=== PATIENT | male | born 1995 | race Hispanic/Latino ===

== ENCOUNTER → 2023-10-25 | Emergency (ER) | payer OTHER, SELFPAY ==
[~2023-10-25] MED LIST: MORPHINE 4 MG/ML SYR ONE; ONDANSETRON 4 MG/2 ML VIAL ONE
--- OUTSIDE RECORDS SUMMARY | 2023-10-25 20:36 | XMS REPORT | Continuity of Care Document ---
Author Name Unknown Address [address] [facility] [address]. [address] [place] [address] [facility] thconnect Address [address] [facility]. [address] [place] [address] Care Team Providers Care [facility] Name Role Phone Pcp, Patient Does Not Have A Primary Care Physic [facility], Gary Tony Attending Clinician U Jun Gutiérrez MD Attending Clinician UJN RODRIGUEZ Attending Clinician Unavailable Problems Condition Name Condition Details Condition Category Status Onset Date Resolution Date Last Treatment Date Treating Clinician Comments Source Mandible fracture Mandible fracture Disease Active 04-01 00:00: 00 [facility] Closed fracture of mandible, unspecifie d laterality , unspecifie d mandibular site, initial encounter Closed fracture of mandible, unspecifie d laterality , unspecifie d mandibular site, initial encounter Disease Active 04-01 00:00: 00 Overview: Formattin g of this note might be different from the original. Added automatic ally from request for surgery [id number] [facility] Allergies, Adverse Reactions, Alerts Allergy Name Allergy Type Status Severity Reaction(s) Onset Date Inactive Date Treating Clinician Comments Source NO KNOWN ALLERGIE S Drug Class Active [facility] Social History Social Habit Start Date Stop Date Quantity Comments Source Tobacco use and exposure 2018-05-10 00:00:00 2018-05-10 00:00:00 Never used [facility] Cigarettes smoked current (pack per day) - Reported 2018-05-10 00:00:00 2018-05-10 00:00:00 [facility] Cigarette pack-years 2018-05-10 00:00:00 2018-05-10 00:00:00 [facility] History of tobacco use 2017-05-10 00:00:00 Cigarette Smoker [facility] Sex Assigned At 1995 00:00:00 1995 00:00:00 [facility] Smoking Status Start Date Stop Date Source Former smoker 2018-05-10 00:00:00 2018-05-10 00:00:00 [facility] Medications Ordered Medication Name Filled Medication Name Start Date Stop Date Current Medication? Ordering Clinician Indication Dosage Frequency Signature (SIG) Comments Components Source TAKE 1 TABLET DAILY. 2022-0 8-11 00:00: 00 No 25 Dose Unknown 2022-0 5-01 00:00: 00 No Dose Unknown 2022-0 4-26 00:00: 00 No Dose Unknown 2022-0 4-26 00:00: 00 No Dose Unknown 2022-0 4-26 00:00: 00 No Dose Unknown 2022-0 4-26 00:00: 00 No Dose Unknown 2022-0 4-26 00:00: 00 No Dose Unknown 2022-0 4-26 00:00: 00 No Dose Unknown 2022-0 4-26 00:00: 00 No Dose Unknown 2022-0 4-26 00:00: 00 No Dose Unknown 2022-0 4-26 00:00: 00 No Dose Unknown 2022-0 4-26 00:00: 00 No Dose Unknown 2022-0 4-26 00:00: 00 No Dose Unknown 2022-0 4-26 00:00: 00 No Dose Unknown 2022-0 4-26 00:00: 00 No Dose Unknown 2022-0 4-26 00:00: 00 No Dose Unknown 2022-0 4-26 00:00: 00 No Dose Unknown 2022-0 4-26 00:00: 00 No Dose Unknown 2022-0 4-26 00:00: 00 No Dose Unknown 2022-0 4-26 00:00: 00 No Dose Unknown 2022-0 4-26 00:00: 00 No Dose Unknown 2022-0 4-26 00:00: 00 No Dose Unknown 2022-0 4-26 00:00: 00 No Dose Unknown 2022-0 4-26 00:00: 00 No Dose Unknown 2022-0 4-26 00:00: 00 No Dose Unknown 12-09 00:00: 00 No Dose Unknown 12-09 00:00: 00 No Dose Unknown 12-09 00:00: 00 No Dose Unknown 12-09 00:00: 00 No Dose Unknown 12-09 00:00: 00 No Dose Unknown 12-09 00:00: 00 No Macrobid 100 mg capsule 12-09 00:00: 00 No 1mg Dose Unknown 12-09 00:00: 00 No Dose Unknown 10-24 00:00: 00 No Dose Unknown 10-24 00:00: 00 No Claritin 10 mg tablet 09-29 00:00: 00 No 1mg fluticasone propionate 50 mcg/actuati on nasal spray,suspe nsion 09-29 00:00: 00 No 2mcg/ac tuation Dose Unknown 09-29 00:00: 00 No No known medications 04-05 13:53: 30 No Univers [facility] Vital Signs Vital Name Observation Time Observation Value Comments S ource BP Diastolic 2022-03-26 17:17:00 90 mm[Hg] Weight Measured 2022-03-26 17:17:00 186.40 pounds Height Measured 2022-03-26 17:17:00 67.00 inches Body Temperature 2022-03-26 17:17:00 98.50 degrees Heart Rate 2022-03-26 17:17:00 73.00 /min Respiratory Rate 2022-03-26 17:17:00 BP Systolic 2022-03-26 17:17:00 151 mm[Hg] BP Systolic 2021-12-09 16:47:00 108 mm[Hg] BP Diastolic 2021-12-09 16:47:00 66 mm[Hg] Weight Measured 2021-12-09 16:47:00 186.60 pounds Height Measured 2021-12-09 16:47:00 67.00 inches Body Temperature 2021-12-09 16:47:00 97.90 degrees Heart Rate 2021-12-09 16:47:00 96.00 /min Respiratory Rate 2021-12-09 16:47:00 21.00 /min Procedures Procedure Date / Time Performed Performing Clinicia n Source SARS-COV-2 COVID-19 VACCINE,0.3ML,IM (PFIZER) 2021-09-08 21:32:43 Doctor Unassigned, [place] [facility] Plan of Care Planned Activity Planned Date Details Comments Source Goal Plan of Care Note [code = 82799-0] Goal Plan of Care Note [code = 27347-9] Goal Plan of Care Note [code = 27722-8] Goal Plan of Care Note [code = 08719-4] Goal Plan of Care Note [code = 49304-1] Goal Plan of Care Note [code = 66193-8] Goal Plan of Care Note [code = 01867-3] Goal Plan of Care Note [code = 39708-1] Goal Plan of Care Note [code = 99567-2] Goal Plan of Care Note [code = 89018-6] Goal Plan of Care Note [code = 06849-8] Goal Plan of Care Note [code = 64704-7] Encounters Start Date/Time End Date/Time Encounter Type Admission Type Attending [facility] Care Department Encounter ID Source 2022-09-21 17:31:11 2022-09-21 17:31:11 Outpatient [facility] [id number] Aakash Wilde Roney 2022-09-17 11:02:40 2022-09-17 11:02:40 Outpatient [facility] [id number] Aakash F Roney 2022-09-14 15:26:21 2022-09-14 15:26:21 Outpatient [facility] [id number] Aakash Sim 2022-03-26 00:00:00 2022-03-26 00:00:00 Outpatient Visit [id number] 2021-09-08 14:50:00 2021-09-08 15:00:00 Imm/Inj Visit Fernanda, Gary Jun Lam [facility] [id number] [facility] 2021-09-08 14:50:00 2021-09-08 14:50:00 Outpatient Rubin JUN RODRIGUEZ [facility] [id number] [facility] Results Test Description Test Time Test Comments Results Result Co mments Source CULTURE, URINE 2022-09-19 11:03:58 SPECIMEN NUMBER: [id number] CULTURE, URINE SPECIMEN NUMBER: [id number] SPECIMEN COMMENT: URINE SOURCE: URINE REPORT STATUS: FINAL FINAL REPORT: 09/19/2022 NO GROWTH AFTER 36 HOURS INCUBATION [facility] has important pathology staff changes effective 10/14/2022. New pathology staff will provide uninterrupted, excellent patient care and clinical consultation. See URL: [email or web address]. UNLESS OTHERWISE INDICATED, ALL TESTING PERFORMED AT [facility] [address] [place] [id number] CLIA: [id number], CAP: [id number] HIV 1/2 4TH GEN, RFLX [id number] 04:28:10* Test Item Value Reference Range Interpretation Comme nts HIV 1/2 4TH GEN, RFLX CONF ( test code = 3514) NON-REACTIVE NON-REACTIVE [id number] 04:26:07* Test Item Value Reference Range Interpretation Comme nts RPR RESULT (test code = 3501) NON-REACTIVE NON-REACTIVE RPR TITER (test code = 3500) NOT INDIC. TITER NOT INDIC. TSH, THIRD [id number] 04:27:09* Test Item Value Reference Range Interpretation Comme nts TSH, THIRD GENERATION (test code = 2821) 2.170 UIU/ML 0.400-4.100 COMPREHENSIVE METABOLIC [id number] 03:37:00* Test Item Value Reference Range Interpretation Comme nts GLUCOSE (test code = 2217) 88 MG/DL 70-99 BUN (test code = 2208) 18 MG/DL 6-20 CREATININE (test code = 2214) 1.00 MG/DL 0.80-1.40 eGFR (2020 CKD-EPI) (test code = 18733) 106 ML/MIN/1.73 >60 CALC BUN/CREAT (test code = 2235) 18 RATIO 6-28 SODIUM (test code = 223) 138 MEQ/L 133-146 POTASSIUM (test code = 2228) 4.4 MEQ/L 3.5-5.4 CHLORIDE (test code = 2215) 101 MEQ/L 95-107 CARBON DIOXIDE (test code = 2205) 26 MEQ/L 19-31 CALCIUM (test code = 2208) 9.8 MG/DL 8.5-10.5 PROTEIN, TOTAL (test code = 2228) 7.6 G/DL 6.1-8.3 ALBUMIN (test code = 2200) 4.9 G/DL 3.5-5.2 CALC GLOBULIN (test code = 2240) 2.7 G/DL 1.9-3.7 CALC A/G RATIO (test code = 2233) 1.8 RATIO 1.0-2.6 BILIRUBIN, TOTAL (test code = 2206) 0.4 MG/DL See_Comment [Automated me ssage] The system which generated this result transmitted reference range: <=1.2. The reference range was not used to interpret this result as normal/abnormal. ALKALINE PHOSPHATASE (test code = 2203) 78 U/L 40-115 AST (test code = 221) 22 U/L 9-50 ALT (test code = 2219) 34 U/L 5-50 LIPID [id number] 03:37:00* Test Item Value Reference Range Interpretation Comme nts CHOLESTEROL (test code = 2210) 182 MG/DL <200 TRIGLYCERIDES (test code = 2232) 52 MG/DL <150 HDL CHOLESTEROL (test code = 2219) 71 MG/DL >39 CALC LDL CHOL (test code = 2236) 98 MG/DL <100 NOTE: CALCULATED LDL IS BASED ON KERRI-BRIGGS METHOD WHICHINCLUDES ADJUSTABLE TRIGLYCERIDE:VLDL CHOLESTEROL RATIO.THIS FACTOR VARIES BY MEASURED TRIGLYCERIDE AND NON-HDLCHOLESTEROL CONCENTRATIONS WITH INCREASED CALCULATED LDL SEENIN HIGHER TRIGLYCERIDE OR LOWER NON-HDL SPECIMENS. FOR MOREINFORMATION, SEE CLIENT ANNOUNCEMENT AT [email or web address] RISK RATIO LDL/HDL (test code = 2238) 1.38 RATIO <3.55 UNLESS OTHERW ISE INDICATED, ALL TESTING PERFORMED [facility] [address] [place] [id number] PARTS PROCESSOR: SAVANAH MCDONALD M.D. CLIA NUMBER [id number] [facility]. [id number] CBC W/AUTO DIFF WITH [id number] 03:04:03* Test Item Value Reference Range Interpretation Comme nts WBC (test code = 1001) 5.6 K/UL 3.5-11.0 RBC (test code = 1002) 4.92 M/UL 4.50-6.10 HEMOGLOBIN (test code = 1003) 15.6 G/DL 13.5-17.0 HEMATOCRIT (test code = 1004) 45.4 % 40.0-51.0 MCV (test code = 1005) 92.3 fL 80.0-99.0 MCH (test code = 1006) 31.7 PG 25.0-33.0 MCHC (test code = 1007) 34.4 G/DL 31.0-36.0 RDW (test code = 1038) 12.6 % 11.5-15.0 NEUTROPHILS (test code = 1008) 63.7 % LYMPHOCYTES (test code = 1010) 26.6 % MONOCYTES (test code = 1011) 7.9 % EOSINOPHILS (test code = 1012) 1.1 % BASOPHILS (test code = 1013) 0.5 % IMMATURE GRANULOCYTES (test code = 1036) 0.2 % NUCLEATED RBCS (test code = 1065) 0.0 /100 WBC'S See_Comment [Automated messa ge] The system which generated this result transmitted reference range: 0.0. The reference range was not used to interpret this result as normal/abnormal. PLATELET COUNT (test code = 1015) 242 K/UL 130-400 ABSOLUTE NEUTROPHILS (test code = 1066) 3.55 K/UL 1.50-7.50 ABSOLUTE LYMPHOCYTES (test code = 1067) 1.48 K/UL 1.00-4.00 ABSOLUTE MONOCYTES (test code = 1068) 0.44 K/UL 0.20-1.00 ABSOLUTE EOSINOPHILS (test code = 1040) 0.06 K/UL 0.00-0.50 ABSOLUTE BASOPHILS (test code = 1069) 0.03 K/UL 0.00-0.20 ABS IMMATURE GRANULOCYTES (test code = 1020) 0.01 K/UL 0.00-0.10 ABS NUCLEATED RBCS (test code = 34239) 0.00 K/UL 0.00-0.11 CULTURE, [id number] 13:46:27SPECIMEN NUMBER: [id number] CULTURE, URINE SPECIMEN NUMBER: [id number] SPECIMEN COMMENT: URINE SOURCE: URINE REPORT STATUS: FINAL FINAL REPORT: 12/12/2021 <10,000 CFU/ML UROGENITAL SUZAN PRESENT NO COMMON PATHOGENSCULTURE, [id number] 00:00:00* Test Item Value Reference Range Interpretation Comme nts CULTURE, URINE (test code = 34474) SPECIMEN NUMBER: [id number] CULTURE, [id number] 00:00:00* Test Item Value Reference Range Interpretation Comme nts CULTURE, URINE (test code = 44111) SPECIMEN NUMBER: [id number] CT/NG, NAAT, [id number] 19:42:47* Test Item Value Reference Range Interpretation Comme nts GONORRHEA, NAAT (test code = 48783) NEGATIVE NEGATIVE IMPORTANT NO CHEIKH: SEE ANNOUNCEMENT AT [email or web address] Note: Assay methodology is nucleic acid amplification by customer engineering specialist mediated amplification (TMA) utilizing the Aptima Combo 2 Assay. CHLAMYDIA, NAAT (test code = 88719) NEGATIVE NEGATIVE IMPORTANT NO CHEIKH: SEE ANNOUNCEMENT AT [email or web address] Note: Assay methodology is nucleic acid amplification by customer engineering specialist mediated amplification (TMA) utilizing the Aptima Combo 2 Assay. [id number] 04:26:58* Test Item Value Reference Range Interpretation Comme nts RPR RESULT (test code = 3501) NON-REACTIVE NON-REACTIVE RPR TITER (test code = 3500) NOT INDIC. TITER NOT INDIC. UNLESS OTHERWISE INDICATED, ALL TESTING [facility]FORMED [facility] [address] [place] [id number] PARTS PROCESSOR: SAVANAH MCDONALD M.D. CLIA NUMBER [id number] [facility] [place]. [id number] HIV 1/2 4TH GEN, RFLX [id number] 03:50:31* Test Item Value Reference Range Interpretation Comme nts HIV 1/2 4TH GEN, RFLX CONF ( test code = 3514) NON-REACTIVE NON-REACTIVE HEPATITIS PANEL, [id number] 03:50:31* Test Item Value Reference Range Interpretation Comme nts HEPATITIS A IgM (test code = 86225) NON-REACTIVE NON-REACTIVE HEPATITIS B CORE IgM (test code = 4644) NON-REACTIVE NON-REACTIVE HEPATITIS B SURF AG (test code = 2739) NON-REACTIVE NON-REACTIVE HEPATITIS C ANTIBODY (test code = 4675) NON-REACTIVE NON-REACTIVE INTERPRETATION HEPATITIS A: (test code = 2552) (NOTE) Hepatitis A serology shows no evidence of acute hepatitis A. INTERPRETATION HEPATITIS B: (test code = 30267) (NOTE) Hepatitis B serology shows no evidence of acute hepatitis B andno indication of exposure to hepatitis B virus in the previous aida eight months. INTERPRETATION HEPATITIS C: (test code = 95876) (NOTE) Hepatitis C serology shows no evidence of exposure to hepatitisC virus at this time. It can take up to 12 months after exposure tothe hepatitis C virus for antibodies to become detectable in the blood in certain patients. HIV AB/AG COMBO RFLX [id number] 00:00:00* Test Item Value Reference Range Interpretation Comme nts HIV 1/2 4TH GEN, RFLX CONF ( test code = 3514) NON-REACTIVE HIV AB/AG COMBO RFLX [id number] 00:00:00* Test Item Value Reference Range Interpretation Comme nts HIV 1/2 4TH GEN, RFLX CONF ( test code = 3514) NON-REACTIVE ACUTE HEPATITIS [id number] 00:00:00* Test Item Value Reference Range Interpretation Comme nts HEPATITIS A IgM (test code = 84761) NON-REACTIVE HEPATITIS B CORE IgM (test c ode = 4644) NON-REACTIVE HEPATITIS B SURF AG (test co de = 2739) NON-REACTIVE HEPATITIS C ANTIBODY (test c ode = 4675) NON-REACTIVE INTERPRETATION HEPATITIS A: (test code = 2552) (NOTE) INTERPRETATION HEPATITIS B: (test code = 53315) (NOTE) INTERPRETATION HEPATITIS C: (test code = 26681) (NOTE) ACUTE HEPATITIS [id number] 00:00:00* Test Item Value Reference Range Interpretation Comme nts HEPATITIS A IgM (test code = 25704) NON-REACTIVE HEPATITIS B CORE IgM (test c ode = 4644) NON-REACTIVE HEPATITIS B SURF AG (test co de = 2739) NON-REACTIVE HEPATITIS C ANTIBODY (test c ode = 4638) NON-REACTIVE INTERPRETATION HEPATITIS A: (test code = 2552) (NOTE) INTERPRETATION HEPATITIS B: (test code = 19060) (NOTE) INTERPRETATION HEPATITIS C: (test code = 91608) (NOTE) GC AND CHLAMYDIA, AMPLIFIED, [id number] 00:00:00* Test Item Value Reference Range Interpretation Comme nts GONORRHEA, NAAT (test code = 14445) NEGATIVE CHLAMYDIA, NAAT (test code = 20616) NEGATIVE GC AND CHLAMYDIA, AMPLIFIED, [id number] 00:00:00* Test Item Value Reference Range Interpretation Comme nts GONORRHEA, NAAT (test code = 84661) NEGATIVE CHLAMYDIA, NAAT (test code = 50357) NEGATIVE [id number] 00:00:00* Test Item Value Reference Range Interpretation Comme nts RPR RESULT (test code = 3501) NON-REACTIVE RPR TITER (test code = 3500) NOT INDIC. TITER [id number] 00:00:00* Test Item Value Reference Range Interpretation Comme nts RPR RESULT (test code = 3501) NON-REACTIVE RPR TITER (test code = 3500) NOT INDIC. TITER [id number] 00:00:00* Test Item Value Reference Range Interpretation Comme nts RPR RESULT (test code = 3501) NON-REACTIVE RPR TITER (test code = 3500) NOT INDIC. TITER
[2023-10-25 21:50] LABS: Specific Gravity 1.008 (1.005-1.030); Urine Bacteria None Seen /HPF (<20); Urine Bilirubin NEGATIVE (Negative); Urine Blood Negative (Negative); Urine Clarity Clear (Clear); Urine Color Colorless (Yellow); Urine Glucose NEGATIVE (Negative); Urine Protein NEGATIVE (Negative); Urine RBC <5 /HPF (None Seen); Urine Urobilinogen Normal (Normal); Urine pH 6.5 (5.0-7.0)
[2023-10-25 23:45] LABS: Absolute Basophils 0.1 K/uL (0-0.5); Absolute Eosinophils 0.2 K/uL (0-0.5); Absolute Lymphocytes (CBC) 3.4 K/uL (0.7-4.9); Basophils % 0.6 % (0-1.3); Eosinophils % 2.8 % (0-4.4); Hematocrit 42.4 % (39.6-49.0); Hemoglobin 15.1 g/dL (13.6-17.9); Lymphocytes % 38.7 % (15.3-44.8); MCV 89.6 fL (80-100); MPV 7.7 fL (7.6-11.3); Platelets 224 thou/uL (152-406); RBC Red Blood Cell Count 4.73 M/uL (4.33-5.43)
[2023-10-25 23:55] LABS: Albumin 3.9 g/dL (3.4-5.0); Albumin/Globulin Ratio 1.1 (1.1-1.8); Anion Gap 8.6 mEq/L (5.0-15.0); Bilirubin Total 0.3 mg/dL (0.2-1.0); Globulin 3.5 g/dL (2.3-3.5); Potassium 3.6 mEq/L (3.5-5.1); Protein, Total 7.4 g/dL (6.4-8.2)
--- NOTE | 2023-10-26 00:19 | ER ---
Nurse's Notes [facility] Name: Yossi Royal Age: 28 yrs Sex: Male : 1995 Arrival Date: 10/25/2023 Time: 20:34 Bed 10 Private MD: None, None Diagnosis: Lower abdominal pain, unspecified;Elevated blood sugar Presentation: 10/24 21:09 Coronavirus screen: Vaccine status: Patient reports receiving the 2nd dose of the covid kd3 vaccine. Ebola Screen: No symptoms or risks identified at this time. Initial Sepsis Screen: Does the patient meet any 2 criteria? No. Patient's initial sepsis screen is negative. Does the patient have a suspected source of infection? No. Patient's initial sepsis screen is negative. Risk Assessment: Do you want to hurt yourself or someone else? Patient reports no desire to harm self or others. Onset of symptoms was October 11, 2023. 21:09 Method Of Arrival: Ambulatory kd3 21:11 Chief complaint: Patient states: I started to pee a lot more starting 2 weeks ago. Now kd3 i pee and i still feel like i have to pee, im also starting to get pains. I feel it in my kidneys too. The pain is constant. 21:11 Acuity: CARYN 3 kd3 Triage Assessment: 21:10 General: Appears in no apparent distress. Behavior is calm, cooperative. Pain: kd3 Complains of pain in right lower quadrant and left lower quadrant. Historical: - Allergies: 21:10 No Known Allergies; kd3 - Immunization history:: Adult Immunizations up to date. - Social history:: Smoking status: Patient denies any tobacco usage or history of. - Family history:: not pertinent. Screenin:30 [facility] ED Fall Risk Assessment (Adult) History of falling in the last 3 months, lg3 including since admission No falls in past 3 months (0 pts). Abuse screen: Denies threats or abuse. Denies injuries from another. Nutritional screening: No deficits noted. Tuberculosis screening: No symptoms or risk factors identified. Assessment: 23:30 General: Appears in no apparent distress. uncomfortable, Behavior is calm, cooperative. lg3 Pain: Complains of pain in right upper quadrant and right lower quadrant Pain radiates to right flank. Neuro: No deficits noted. Beckham Agitation-Sedation Scale (RASS): 0 - Alert and Calm Level of Consciousness is awake, alert, obeys commands, Oriented to person, place, time, situation. Cardiovascular: No deficits noted. Denies chest pain, shortness of breath, Heart tones S1 S2 present Capillary refill < 3 seconds Clubbing of nail beds is absent JVD is absent Patient's skin is warm and dry. Respiratory: No deficits noted. Airway is patent Respiratory effort is even, unlabored, Respiratory pattern is regular, symmetrical, Breath sounds are clear bilaterally. GI: Abdomen is round non-distended, Reports lower abdominal pain, upper abdominal pain, cramping. : Reports burning with urination, pain in suprapubic area flank(s), in lower back. EENT: No deficits noted. No signs and/or symptoms were reported regarding the EENT system. Derm: No deficits noted. No signs and/or symptoms reported regarding the dermatologic system. Skin is intact, is healthy with good turgor, Skin is dry, Skin is normal, Skin temperature is warm. Musculoskeletal: No deficits noted. No signs and/or symptoms reported regarding the musculoskeletal system. Circulation, motion, and sensation intact. Range of motion: intact in all extremities. Vital Signs: 21:09 BP 131 / 85; Pulse 65; Resp 17; Temp 98.2(O); Pulse Ox 99% on R/A; Weight 90.72 kg; kd3 Height 5 ft. 7 in. ; 23:30 BP 133 / 89; Pulse 72; Resp 17 S; Pulse Ox 99% on R/A; Pain 7/10; lg3 10/25 00:44 BP 122 / 74; Pulse 75; Resp 16; Pulse Ox 97% ; Pain 0/10; cm10 10/24 21:09 Body Mass Index 31.32 (90.72 kg, 170.18 cm) kd3 23:30 Pain Scale: Adult lg3 10/25 00:44 Pain Scale: Adult cm10 ED Course: 10/24 20:39 Patient arrived in ED. es 20:39 Aravind Leach MD is Attending Physician. sp4 20:41 None, None is Private Physician. es 21:10 Arm band placed on left wrist. kd3 21:12 Triage completed. kd3 21:29 Urinalysis W/Microscopic Sent. kd3 21:29 Urine collected: clean catch specimen, clear. kd3 23:19 Carolyne Townsend, RN is Primary Nurse. lg3 23:28 Inserted saline lock: 22 gauge in right antecubital area, using aseptic technique. lg3 Blood collected. 23:28 Initial lab(s) drawn, by me, sent to lab. lg3 23:30 Patient has correct armband on for positive identification. Placed in gown. Bed in low lg3 position. Call light in reach. Side rails up X 1. Client placed on continuous cardiac and pulse oximetry monitoring. NIBP monitoring applied. Door closed. Noise minimized. Warm blanket given. Family accompanied patient. 23:30 Patient maintains SpO2 saturation greater than 95% on room air. lg3 0312 00:17 Fermin So DO is Referral Physician. sp4 00:44 Provided Education on: Follow-up instructions. cm10 00:45 No provider procedures requiring assistance completed. IV discontinued, intact, cm10 bleeding controlled, No redness/swelling at site. Pressure dressing applied. Administered Medications: 10/24 23:54 Drug: morphine IVP or IV 4 mg IVP once over 4 mins Route: IVP; Infused Over: 4 mins; 3 Site: right antecubital; 03 00:44 Follow up: Response: No adverse reaction cm10 10/24 23:54 Drug: Ondansetron IVP 4 mg IVP once; over 2 minutes Route: IVP; Site: right antecubital;3 03 00:44 Follow up: Response: No adverse reaction cm10 Medication: 00:45 VIS not applicable for this client. cm10 Outcome: 00:18 Discharge ordered by . sp4 00:45 Discharged to home ambulatory, with family, cm10 00:45 Condition: good 00:45 Discharge instructions given to patient, Instructed on discharge instructions, follow up and referral plans. medication usage, Demonstrated understanding of instructions, follow-up care, medications, Prescriptions given X 1, 00:45 Patient left the ED. cm10 Signatures: Dulce Maria Arias Lacie, RN RN 3 Sheila Fallon RN RN kd3 Aravind Leach MD MD sp4 Lamar Ayers RN RN cm10
--- NOTE | 2023-10-26 00:19 | EDPHYS ---
Physician Documentation [facility] Name: Yossi Royal Age: 28 yrs Sex: Male : 1995 Arrival Date: 10/25/2023 Time: 20:34 Bed 10 Private MD: None, None ED Physician Aravind Leach HPI: 10/24 20:39 This 28 yrs old Male presents to ER via Unassigned with complaints of Urinary sp4 Problem. 10/25 00:39 Patient presents with 2 weeks of right lower abdominal right flank pain also discomfort sp4 pain with urination . Historical: - Allergies: 10/24 21:10 No Known Allergies; kd3 - Immunization history:: Adult Immunizations up to date. - Social history:: Smoking status: Patient denies any tobacco usage or history of. - Family history:: not pertinent. ROS: 10/25 00:39 Constitutional: Negative for fever, chills, and weight loss, positive abdominal pain, sp4 positive right flank pain, positive burning with urination All other systems are negative, Exam: 00:39 Constitutional: This is a well developed, well nourished patient who is awake, alert, sp4 and in no acute distress. Head/Face: Normocephalic, atraumatic. Eyes: Pupils equal round and reactive to light, extra-ocular motions intact. Lids and lashes normal. Conjunctiva and sclera are not injected. Cornea within normal limits. Periorbital areas with no swelling, redness, or edema. ENT: Nares patent. No nasal discharge, no septal abnormalities noted. Tympanic membranes are normal and external auditory canals are clear. Oropharynx with no redness, swelling, or masses, exudates, or evidence of obstruction, uvula midline. Mucous membranes moist. Neck: Trachea midline, no thyromegaly or masses palpated, and no cervical lymphadenopathy. Supple, full range of motion without nuchal rigidity, or vertebral point tenderness. Chest/axilla: Normal chest wall appearance and motion. Nontender with no deformity. No lesions are appreciated. Cardiovascular: Regular rate and rhythm with a normal S1 and S2. No gallops, murmurs, or rubs. Normal PMI, no JVD. No pulse deficits. Respiratory: Lungs have equal breath sounds bilaterally, clear to auscultation and percussion. No rales, rhonchi or wheezes noted. No increased work of breathing, no retractions or nasal flaring. Abdomen/GI: Soft, with normal bowel sounds. No distension or tympany. No guarding or rebound. No evidence of tenderness throughout. Back: No spinal tenderness. No costovertebral tenderness. Male : Normal genitalia with no discharge or lesions. Zones, no lymphadenopathy, no lesions, no rashes, normal circumcised male, no testicular masses, no inguinal hernias. Skin: Warm, dry with normal turgor. Normal color with no rashes, no lesions, and no evidence of cellulitis. MS/ Extremity: Pulses equal, no cyanosis. Neurovascular intact. Full, normal range of motion. Neuro: Awake and alert, GCS 15, oriented to person, place, time, and situation. Cranial nerves II-XII grossly intact. Motor strength 5/5 in all extremities. Sensory grossly intact. Psych: Awake, alert, with orientation to person, place and time. Behavior, mood, and affect are within normal limits Vital Signs: 10/24 21:09 BP 131 / 85; Pulse 65; Resp 17; Temp 98.2(O); Pulse Ox 99% on R/A; Weight 90.72 kg; kd3 Height 5 ft. 7 in. ; 23:30 BP 133 / 89; Pulse 72; Resp 17 S; Pulse Ox 99% on R/A; Pain 7/10; lg3 10/25 00:44 BP 122 / 74; Pulse 75; Resp 16; Pulse Ox 97% ; Pain 0/10; cm10 10/24 21:09 Body Mass Index 31.32 (90.72 kg, 170.18 cm) kd3 23:30 Pain Scale: Adult lg3 10/25 00:44 Pain Scale: Adult cm10 MDM: 10/24 20:55 Patient medically screened. sp4 10/25 00:11 ED course: EXAM: CTABDOMEN AND PELVIS WITHOUT CONTRASTAbdomen Pelvis Wo Contrast sp4 CLINICAL INDICATION: LOWER ABD PAIN, URINE FREQ TECHNIQUE: CT abdomen and pelvis was performed, without IV contrast, as per department protocol. Axial, sagittal, and coronal reconstructions were obtained. IV CONTRAST: Not administered, limiting sensitivity of this exam for evaluation of solid visceral organs, vascular structures, and retroperitoneum. ORAL CONTRAST: Not administered, limiting sensitivity of this exam for evaluation of bowel, retroperitoneum, and intraabdominal fluid collections. RADIATION DOSE REDUCTION: This exam was performed according to the departmental dose-optimization program which includes automated exposure control, adjustment of the mA and/or kV according to patient size and/or use of iterative reconstruction technique. Total DLP: 982. CTDI: 15.8. COMPARISON: Abdominal pelvic CT March 13, 2014 FINDINGS: LOWER CHEST: Lung bases demonstrate no acute consolidation or effusion LIVER: Hypoattenuation of the liver compatible with fatty infiltration. Fatty infiltration and geographic GALLBLADDER: Contracted gallbladder. No radiopaque calculus BILE DUCTS: No biliary dilatation PANCREAS: No pathologic process. SPLEEN: No pathologic process. ADRENALS: No pathologic process. KIDNEYS AND URETERS: No pathologic process. URINARYBLADDER: Bladder is collapsed. No surrounding inflammatory change GASTROINTESTINAL TRACT: No bowel obstruction Low to moderate volume colonic stool No significant colonic diverticulosis. No diverticulitis APPENDIX: No inflammatory changes in region of appendix. Clips adjacent to the cecum compatible with appendectomy. Appendix not identified LYMPH NODES: No lymphadenopathy. PERITONEUM/MESENTERY: No free air, significant free fluid, mass or fluid collection. VESSELS: No vascular abnormality. ADDITIONAL RETROPERITONEAL FINDINGS: None. REPRODUCTIVE ORGANS: No pathologic process. ABDOMINAL AND PELVIC GAY: No acute abnormality MUSCULOSKELETAL: No acute abnormality ADDITIONAL FINDINGS: None. IMPRESSION: 1. Geographic fatty infiltration liver. 2. No free air. No free fluid. 3. No bowel obstruction. 4. No acute inflammatory change. 5. No renal or ureteral calculus. No hydronephrosis. 6. Collapsed urinary bladder. No calculus or surrounding inflammatory change Standardized Report: [id number]. Electronically signed by: Vaibhav Pulido MD 10/25/2023 11:13 PM CDT . 00:39 Differential Diagnosis altered mental status, sepsis, flu, UTI . Data reviewed: vital sp4 signs, nurses notes. Data reviewed: radiologic studies, CT scan. Consideration of Admission/Observation Escalation of care including admission/observation considered. ED course: Workup today reveals fatty liver, but otherwise normal CT. Patient stable for discharge home. Will advise follow-up with religious education coordinator for blood sugar check in 2 to 4-week. . 10/24 20:55 Order name: Urinalysis W/Microscopic; Complete Time: 21:56 sp4 10/24 22:04 Order name: CBC with Diff sp4 10/24 22:04 Order name: CMP sp4 10/24 23:46 Order name: CBC with Automated Diff; Complete Time: 23:59 EDMS 10/24 23:56 Order name: Comprehensive Metabolic Panel; Complete Time: 23:59 EDMS 10/24 22:04 Order name: CT Abd/Pelvis - Without Contrast sp4 10/24 22:42 Order name: Abdomen EDMS Administered Medications: 10/24 23:54 Drug: morphine IVP or IV 4 mg IVP once over 4 mins Route: IVP; Infused Over: 4 mins; lg3 Site: right antecubital; 10/25 00:44 Follow up: Response: No adverse reaction cm10 10/24 23:54 Drug: Ondansetron IVP 4 mg IVP once; over 2 minutes Route: IVP; Site: right antecubital;lg3 10/25 00:44 Follow up: Response: No adverse reaction cm10 Disposition Summary: 10/26/23 00:18 Discharge Ordered Problem: new sp4 Symptoms: have improved sp4 Condition: Stable sp4 Diagnosis - Lower abdominal pain, unspecified sp4 - Elevated blood sugar sp4 Followup: sp4 - With: Fermin So DO - When: 7 - 10 days - Reason: Recheck today's complaints Discharge Instructions: - Discharge Summary Sheet sp4 - Flank Pain, Adult, Bazc-sl-Pnfx sp4 Forms: - Patient Portal Instructions sp4 Prescriptions: - naproxen sodium 500 mg Oral Tablet, ER Multiphase 24 hr - take 1 tablet ORAL route every 12 hours PRN pain; 30 tablet; Refills: 0, sp4 Product Selection Permitted Signatures: Dispatcher [employer] Carolyne Larson RN RN lg3 Sheila Fallon RN RN kirsty3 Aravind Leach MD MD sp4 Lamar Ayers RN cm10
[2023-10-26 01:21] VITALS: BP 122/74; TEMP 98.2; O2SAT 97
--- NOTE | 2023-10-26 13:07 | RAD REPORT ---
EXAM DESCRIPTION: CT - Abdomen Pelvis Wo Contrast - 10/26/2023 6:53 am CLINICAL INDICATION: LOWER ABD PAIN, URINE FREQ TECHNIQUE: CT abdomen and pelvis was performed, without IV contrast, as per department protocol. Axia l, sagittal, and coronal reconstructions were obtained. IV CONTRAST: Not administered, limiting sensitivity of this exam for evaluation of solid visceral org ans, vascular structures, and retroperitoneum. ORAL CONTRAST: Not administered, limiting sensitivity of this exam for evaluation of bowel, retroperi toneum, and intraabdominal fluid collections. RADIATION DOSE REDUCTION: This exam was performed according to the departmental dose-optimization pro gram which includes automated exposure control, adjustment of the mA and/or kV according to patient s ize and/or use of iterative reconstruction technique. Total DLP: 982. CTDI: 15.8. COMPARISON: Abdominal pelvic CT March 13, 2014 FINDINGS: LOWER CHEST: Lung bases demonstrate no acute consolidation or effusion LIVER: Hypoattenuation of the liver compatible with fatty infiltration. Fatty infiltration and geographic GALLBLADDER: Contracted gallbladder. No radiopaque calculus BILE DUCTS: No biliary dilatation PANCREAS: No pathologic process. SPLEEN: No pathologic process. ADRENALS: No pathologic process. KIDNEYS AND URETERS: No pathologic process. URINARY BLADDER: Bladder is collapsed. No surrounding inflammatory change GASTROINTESTINAL TRACT: No bowel obstruction Low to moderate volume colonic stool No significant colonic diverticulosis. No diverticulitis APPENDIX: No inflammatory changes in region of appendix. Clips adjacent to the cecum compatible with appendecto my. Appendix not identified LYMPH NODES: No lymphadenopathy. PERITONEUM/MESENTERY: No free air, significant free fluid, mass or fluid collection. VESSELS: No vascular abnormality. ADDITIONAL RETROPERITONEAL FINDINGS: None. REPRODUCTIVE ORGANS: No pathologic process. ABDOMINAL AND PELVIC GAY: No acute abnormality MUSCULOSKELETAL: No acute abnormality ADDITIONAL FINDINGS: None. IMPRESSION: 1. Geographic fatty infiltration liver. 2. No free air. No free fluid. 3. No bowel obstruction. 4. No acute inflammatory change. 5. No renal or ureteral calculus. No hydronephrosis. 6. Collapsed urinary bladder. No calculus or surrounding inflammatory change Standardized Report: [id number]. Electronically signed by: Vaibhav Pulido MD 10/25/2023 11:13 PM CDT Due to temporary technical issues with the PACS/Fluency reporting system, reports are being signed by the in house radiologist without review as a courtesy to ensure prompt reporting. The interpreting r adiologist is fully responsible for the content of the report.
== END ==
LOC: ER 20:34
DX: R10.31 Right lower quadrant pain (principal); R73.9 Hyperglycemia, unspecified; R30.0 Dysuria
CPT/HCPCS: 36415; 74176; 80053; 81001; 85025; J2405

== ENCOUNTER 2023-11-13 06:58 | Emergency (ER) | payer SELFPAY ==
--- OUTSIDE RECORDS SUMMARY | 2023-11-13 07:01 | XMS REPORT | Continuity of Care Document ---
Author Name Unknown Address [address] [place] [address] [facility] thconnect Address [address] [facility] [place] [address] Care Team Providers Care Insurance Loss Assessor Name Role Phone Pcp, Patient Does Not Have A Primary Care Physic aparna [facility] [place] Tony Attending Clinician U Jun Gutiérrez MD Attending Clinician JUN RODRIGUEZ Attending Clinician Unavailable Problems Condition Name Condition Details Condition Category Status Onset Date Resolution Date Last Treatment Date Treating Clinician Comments Source Mandible fracture Mandible fracture Disease Active 04-01 00:00: 00 [facility] Closed fracture of mandible, unspecifie d laterality , unspecifie d mandibular site, initial encounter Closed fracture of mandible, unspecifie d laterality , unspecifie d mandibular site, initial encounter Disease Active 04-01 00:00: 00 Overview: Formattin g of this note might be different from the original. Added automatic ally from request for surgery [id number] [facility] Allergies, Adverse Reactions, Alerts Allergy Name Allergy Type Status Severity Reaction(s) Onset Date Inactive Date Treating Clinician Comments Source NO KNOWN ALLERGIE S Drug Class Active [facility] Social History Social Habit Start Date Stop Date Quantity Comments Source Tobacco use and exposure 2018-05-10 00:00:00 2018-05-10 00:00:00 Never used [facility] Cigarettes smoked current (pack per day) - Reported 2018-05-10 00:00:00 2018-05-10 00:00:00 [facility] Cigarette pack-years 2018-05-10 00:00:00 2018-05-10 00:00:00 [facility] History of tobacco use 2017-05-10 00:00:00 Cigarette Smoker [facility] Sex Assigned At 1995 00:00:00 1995 00:00:00 [facility] Smoking Status Start Date Stop Date Source Former smoker 2018-05-10 00:00:00 2018-05-10 00:00:00 [facility] Medications Ordered Medication Name Filled Medication Name [...] known medications 04-05 13:53: 30 No Univers [facility] Vital Signs Vital Name Observation Time Observation Value Comments S ource Respiratory Rate 2022-03-26 17:17:00 BP Systolic 2022-03-26 17:17:00 151 mm[Hg] BP Diastolic 2022-03-26 17:17:00 90 mm[Hg] Weight Measured 2022-03-26 17:17:00 186.40 pounds Height Measured 2022-03-26 17:17:00 67.00 inches Body Temperature 2022-03-26 17:17:00 98.50 degrees Heart Rate 2022-03-26 17:17:00 73.00 /min BP Systolic 2021-12-09 16:47:00 108 mm[Hg] BP Diastolic 2021-12-09 16:47:00 66 mm[Hg] Weight Measured 2021-12-09 16:47:00 186.60 pounds Height Measured 2021-12-09 16:47:00 67.00 inches Body Temperature 2021-12-09 16:47:00 97.90 degrees Heart Rate 2021-12-09 16:47:00 96.00 /min Respiratory Rate 2021-12-09 16:47:00 21.00 /min Procedures Procedure Date / Time Performed Performing Clinicia n Source SARS-COV-2 COVID-19 VACCINE,0.3ML,IM (PFIZER) 2021-09-08 21:32:43 Doctor Unassigned, [place] [facility] Plan of Care Planned Activity Planned Date Details Comments Source Goal Plan of Care Note [code = 74420-6] Goal Plan of Care Note [code = 15321-8] Goal Plan of Care Note [code = 37890-6] Goal Plan of Care Note [code = 89479-4] Goal Plan of Care Note [code = 66143-1] Goal Plan of Care Note [code = 46693-2] Goal Plan of Care Note [code = 68632-1] Goal Plan of Care Note [code = 02884-1] Goal Plan of Care Note [code = 41167-1] Goal Plan of Care Note [code = 26534-4] Goal Plan of Care Note [code = 30635-9] Goal Plan of Care Note [code = 45767-4] Encounters Start Date/Time End Date/Time Encounter Type Admission Type Attending [facility] Care Department Encounter ID Source 2022-09-21 17:31:11 2022-09-21 17:31:11 Outpatient [facility] [id number] Aakash Wilde Roney 2022-09-17 11:02:40 2022-09-17 11:02:40 Outpatient [facility] [id number] Aakash F Roney 2022-09-14 15:26:21 2022-09-14 15:26:21 Outpatient [facility] [id number] Aakash Sim 2022-03-26 00:00:00 2022-03-26 00:00:00 Outpatient Visit [id number] 2021-09-08 14:50:00 2021-09-08 15:00:00 Imm/Inj Visit Fernanda, [place] Jun Lam [facility] [id number] [facility] 2021-09-08 14:50:00 2021-09-08 14:50:00 Outpatient Rubin JUN RODRIGUEZ [facility] [id number] [facility] Results Test Description Test Time Test Comments Results Result Co mments Source CULTURE, URINE 2022-09-19 11:03:58 SPECIMEN NUMBER: [id number] CULTURE, URINE SPECIMEN NUMBER: [id number] SPECIMEN COMMENT: URINE SOURCE: URINE REPORT STATUS: FINAL FINAL REPORT: 09/19/2022 NO GROWTH AFTER 36 HOURS INCUBATION [facility] has important pathology staff changes effective 10/14/2022. New pathology staff will provide uninterrupted, excellent patient care and clinical consultation. See URL: [email or web address]. UNLESS OTHERWISE INDICATED, ALL TESTING PERFORMED AT [facility] [address] [place] [address] CLIA: [id number], CAP: [id number] HIV 1/2 4TH GEN, RFLX [id number] 04:28:10* Test Item Value Reference Range Interpretation Comme nts HIV 1/2 4TH GEN, RFLX CONF ( test code = 3514) NON-REACTIVE NON-REACTIVE [id number] 04:26:07* Test Item Value Reference Range Interpretation Comme nts RPR RESULT (test code = 3501) NON-REACTIVE NON-REACTIVE RPR TITER (test code = 3500) NOT INDIC. TITER NOT INDIC. TSH, THIRD [id number] 04:27:09* Test Item Value Reference Range Interpretation Comme nts TSH, THIRD GENERATION (test code = 2821) 2.170 UIU/ML 0.400-4.100 COMPREHENSIVE METABOLIC [id number] 03:37:00* Test Item Value Reference Range Interpretation Comme nts GLUCOSE (test code = 2217) 88 MG/DL 70-99 BUN (test code = 2208) 18 MG/DL 6-20 CREATININE (test code = 2214) 1.00 MG/DL 0.80-1.40 eGFR (2020 CKD-EPI) (test code = 81538) 106 ML/MIN/1.73 >60 CALC BUN/CREAT (test code [...] code = 2219) 34 U/L 5-50 LIPID [id number] 03:37:00* Test Item Value Reference Range Interpretation [...] ISE INDICATED, ALL [facility]ING [facility]FORMED [facility] [address] [place] [address] GUILLOTINE TRIMMER: SAVANAH MCDONALD M.D. CLIA NUMBER [id number] [facility]. [id number] CBC W/AUTO DIFF WITH [id number] 03:04:03* Test Item Value Reference Range Interpretation [...] = 1065) 0.0 /100 WBC'S See_Comment [Automated message] The system which generated this result transmitted [...] 0.00-0.10 ABS NUCLEATED RBCS (test code = 31801) 0.00 K/UL 0.00-0.11 CULTURE, [id number] 13:46:27SPECIMEN NUMBER: [id number] CULTURE, URINE SPECIMEN NUMBER: [id number] SPECIMEN COMMENT: URINE SOURCE: URINE REPORT STATUS: FINAL FINAL REPORT: 12/12/2021 <10,000 CFU/ML UROGENITAL SUZAN PRESENT NO COMMON PATHOGENSCULTURE, [id number] 00:00:00* Test Item Value Reference Range Interpretation Comme nts CULTURE, URINE (test code = 35638) SPECIMEN NUMBER: [id number] CULTURE, [id number] 00:00:00* Test Item Value Reference Range Interpretation Comme nts CULTURE, URINE (test code = 82445) SPECIMEN NUMBER: [id number] CT/NG, NAAT, [id number] 19:42:47* Test Item Value Reference Range Interpretation Comme nts GONORRHEA, NAAT (test code = 68376) NEGATIVE NEGATIVE IMPORTANT NO CHEIKH: SEE ANNOUNCEMENT AT [email or web address] Note: Assay methodology is nucleic acid amplification by staffing coordinator mediated amplification (TMA) utilizing the Aptima Combo 2 Assay. CHLAMYDIA, NAAT (test code = 81625) NEGATIVE NEGATIVE IMPORTANT NO CHEIKH: SEE ANNOUNCEMENT AT [email or web address] Note: Assay methodology is nucleic acid amplification by staffing coordinator mediated amplification (TMA) utilizing the Aptima Combo 2 Assay. [id number] 04:26:58* Test Item Value Reference Range Interpretation Comme nts RPR RESULT (test code = 3501) NON-REACTIVE NON-REACTIVE RPR TITER (test code = 3500) NOT INDIC. TITER NOT INDIC. UNLESS OTHERWISE INDICATED, ALL TESTING PERFORMED [facility] [address] [place] [address] GUILLOTINE TRIMMER: SAVANAH CMDONALD M.D. CLIA NUMBER [id number] [facility] [place]. [id number] HIV 1/2 4TH GEN, RFLX [id number] 03:50:31* Test Item Value Reference Range Interpretation Comme nts HIV 1/2 4TH GEN, RFLX CONF ( test code = 3514) NON-REACTIVE NON-REACTIVE HEPATITIS PANEL, [id number] 03:50:31* Test Item Value Reference Range Interpretation Comme nts HEPATITIS A IgM (test code = 74481) NON-REACTIVE NON-REACTIVE HEPATITIS B CORE IgM (test code = 4644) NON-REACTIVE NON-REACTIVE HEPATITIS B SURF AG (test code = 2739) NON-REACTIVE NON-REACTIVE HEPATITIS C ANTIBODY (test code = 4675) NON-REACTIVE NON-REACTIVE INTERPRETATION HEPATITIS A: (test code = 2552) (NOTE) Hepatitis A serology shows no evidence of acute hepatitis A. INTERPRETATION HEPATITIS B: (test code = 46965) (NOTE) Hepatitis B serology shows no evidence of acute hepatitis B andno indication of exposure to hepatitis B virus in the previous aida eight months. INTERPRETATION HEPATITIS C: (test code = 54333) (NOTE) Hepatitis C serology shows no evidence of exposure to hepatitisC virus at this time. It can take up to 12 months after exposure tothe hepatitis C virus for antibodies to become detectable in the blood in certain patients. HIV AB/AG COMBO RFLX [id number] 00:00:00* Test Item Value Reference Range Interpretation Comme nts HIV 1/2 4TH GEN, RFLX CONF ( test code = 3514) NON-REACTIVE HIV AB/AG COMBO RFLX [id number] 00:00:00* Test Item Value Reference Range Interpretation Comme nts HIV 1/2 4TH GEN, RFLX CONF ( test code = 3514) NON-REACTIVE ACUTE HEPATITIS [id number] 00:00:00* Test Item Value Reference Range Interpretation Comme nts HEPATITIS A IgM (test code = 19299) NON-REACTIVE HEPATITIS B CORE IgM (test c ode = 4644) NON-REACTIVE HEPATITIS B SURF AG (test co de = 2739) NON-REACTIVE HEPATITIS C ANTIBODY (test c ode = 4675) NON-REACTIVE INTERPRETATION HEPATITIS A: (test code = 2552) (NOTE) INTERPRETATION HEPATITIS B: (test code = 29096) (NOTE) INTERPRETATION HEPATITIS C: (test code = 97680) (NOTE) ACUTE HEPATITIS [id number] 00:00:00* Test Item Value Reference Range Interpretation Comme nts HEPATITIS A IgM (test code = 96218) NON-REACTIVE HEPATITIS B CORE IgM (test c ode = 4644) NON-REACTIVE HEPATITIS B SURF AG (test co de = 2739) NON-REACTIVE HEPATITIS C ANTIBODY (test c ode = 4647) NON-REACTIVE INTERPRETATION HEPATITIS A: (test code = 2552) (NOTE) INTERPRETATION HEPATITIS B: (test code = 03058) (NOTE) INTERPRETATION HEPATITIS C: (test code = 26477) (NOTE) GC AND CHLAMYDIA, AMPLIFIED, [id number] 00:00:00* Test Item Value Reference Range Interpretation Comme nts GONORRHEA, NAAT (test code = 67225) NEGATIVE CHLAMYDIA, NAAT (test code = 00247) NEGATIVE GC AND CHLAMYDIA, AMPLIFIED, [id number] 00:00:00* Test Item Value Reference Range Interpretation Comme nts GONORRHEA, NAAT (test code = 09934) NEGATIVE CHLAMYDIA, NAAT (test code = 86047) NEGATIVE [id number] 00:00:00* Test Item Value Reference Range Interpretation Comme nts RPR RESULT (test code = 3501) NON-REACTIVE RPR TITER (test code = 3500) NOT INDIC. TITER [id number] 00:00:00* Test Item Value Reference Range Interpretation Comme nts RPR RESULT (test code = 3501) NON-REACTIVE RPR TITER (test code = 3500) NOT INDIC. TITER [id number] 00:00:00* Test Item Value Reference Range Interpretation Comme nts RPR RESULT (test code = 3501) NON-REACTIVE RPR TITER (test code = 3500) NOT INDIC. TITER
[2023-11-13] MEDS ORDERED: ASPIRIN 81 MG CHEWABLE TABLET ONE ×2 (07:43→07:47)
[2023-11-13 07:54] LABS: Absolute Lymphocytes (CBC) 1.1 K/uL (0.7-4.9); Absolute Monocytes 0.5 K/uL (0.1-1.3); Basophils % 0.4 % (0-1.3); Hematocrit 42.2 % (39.6-49.0); Hemoglobin 14.9 g/dL (13.6-17.9); Lymphocytes % 11.7 % (15.3-44.8); MCH 31.6 pg (27.0-35.0); MCHC 35.2 g/dL (32.0-36.0); MCV 89.7 fL (80-100); MPV 7.5 fL (7.6-11.3); Monocytes % 5.5 % (3.3-12.3); Neutrophils % 82.4 % (41.7-73.7); Platelets 254 thou/uL (152-406); RBC Red Blood Cell Count 4.71 M/uL (4.33-5.43); Red Cell Distribution Width 12.6 % (12.1-15.2)
[2023-11-13] MEDS ORDERED: NA CHLORIDE 0.9% 1,000 ML ONE (08:10)
[2023-11-13 08:14] LABS: Albumin 4.4 g/dL (3.4-5.0); Albumin/Globulin Ratio 1.2 (1.1-1.8); Anion Gap 13.1 mEq/L (5.0-15.0); Bilirubin Direct 0.1 mg/dL (0-0.2); Bilirubin Indirect, Calculated 0.3 mg/dL (0.2-0.8); Bilirubin Total 0.4 mg/dL (0.2-1.0); Globulin 3.7 g/dL (2.3-3.5); Magnesium 1.9 mg/dL (1.6-2.4); Potassium 4.1 mEq/L (3.5-5.1); Protein, Total 8.1 g/dL (6.4-8.2)
--- NOTE | 2023-11-13 08:26 | RAD REPORT ---
EXAM DESCRIPTION: Jose Single View11/13/2023 8:09 am CLINICAL HISTORY: Chest pain COMPARISON: 2016 FINDINGS: The lungs appear clear of acute infiltrate. The heart is normal size IMPRESSION: No acute abnormalities displayed
--- NOTE | 2023-11-13 08:35 | RAD REPORT ---
EXAM DESCRIPTION: CT - Chest For Pe Angio - 11/13/2023 8:19 am CLINICAL HISTORY: Chest pain COMPARISON: None. TECHNIQUE: Dynamically enhanced axial 3 mm thick images of the chest were obtained during administra tion of 100 mL Isovue 370 IV contrast. Coronal and oblique reconstruction images were generated and r eviewed. Exam utilizes a protocol for optimal evaluation of pulmonary arterial tree. Maximum intensity projections 3D imaging was utilized All CT scans are performed using dose optimization technique as appropriate and may include automated exposure control or mA/KV adjustment according to patient size. FINDINGS: A pulmonary embolus is not seen. A thoracic aortic aneurysm is not noted. A pleural effusion is not seen. A pericardial effusion is not seen. A lung consolidation is not present. Fatty liver IMPRESSION: Negative for a pulmonary embolism.
--- NOTE | 2023-11-13 09:04 | ER ---
Nurse's Notes [facility] Name: Yossi Royal Age: 28 yrs Sex: Male : 1995 Arrival Date: 11/13/2023 Time: 06:58 Bed 5 Private MD: Diagnosis: Chest pain, unspecified;Shortness of breath Presentation: 11/12 07:12 Chief complaint: Patient states: CHEST PAIN STARTED 2 HOURS AGO AFTER OUT DRINKING. db Coronavirus screen: Vaccine status: Patient reports receiving the 2nd dose of the covid vaccine. Client denies travel out of the [place] in the last 14 days. At this time, the client does not indicate any symptoms associated with coronavirus-19. Ebola Screen: Patient negative for fever greater than or equal to 101.5 degrees Fahrenheit, and additional compatible Ebola Virus Disease symptoms Patient denies exposure to infectious person. Patient denies travel to an Ebola-affected area in the 21 days before illness onset. No symptoms or risks identified at this time. Initial Sepsis Screen: Does the patient meet any 2 criteria? No. Patient's initial sepsis screen is negative. Does the patient have a suspected source of infection? No. Patient's initial sepsis screen is negative. Risk Assessment: Do you want to hurt yourself or someone else? Patient reports no desire to harm self or others. Onset of symptoms. 07:12 Method Of Arrival: Ambulatory db 07:12 Acuity: CARYN 2 db Triage Assessment: 07:12 General: Appears in no apparent distress. comfortable, Behavior is calm, cooperative. db Pain: Complains of pain in chest. 07:12 Neuro: Level of Consciousness is awake, alert, obeys commands, Oriented to person, db place, time, situation. Cardiovascular: Reports chest pain, Capillary refill < 3 seconds Rhythm is sinus tachycardia. Respiratory: Airway is patent Respiratory effort is even, unlabored, Respiratory pattern is regular, symmetrical. GI: Abdomen is flat. : No deficits noted. No signs and/or symptoms were reported regarding the genitourinary system. Derm: No deficits noted. No signs and/or symptoms reported regarding the dermatologic system. Historical: - Allergies: 07:50 No Known Allergies; db - PMHx: 07:50 ADD/ADHD; Bipolar disorder; Depression; db - Immunization history:: Adult Immunizations unknown. - Social history:: Smoking status: Patient denies any tobacco usage or history of. Patient uses alcohol. Screenin:30 [facility] ED Fall Risk Assessment (Adult) History of falling in the last 3 months, db including since admission No falls in past 3 months (0 pts) Confusion or Disorientation No (0 pts) Intoxicated or Sedated No (0 pts) Impaired Gait No (0 pts) Mobility Assist Device Used No (0 pt) Altered Elimination No (0 pt) Score/Fall Risk Level 0 - 2 = Low Risk Oriented to surroundings, Maintained a safe environment. Abuse screen: Denies threats or abuse. Denies injuries from another. Nutritional screening: No deficits noted. 07:30 Tuberculosis screening: No symptoms or risk factors identified. db Assessment: 07:30 Reassessment: Patient appears in no apparent distress at this time. No changes from db previously documented assessment. Patient and/or family updated on plan of care and expected duration. Pain level reassessed. Patient is alert, oriented x 3, equal unlabored respirations, skin warm/dry/pink. General: Appears in no apparent distress. comfortable, Behavior is calm, cooperative. Neuro: Level of Consciousness is awake, alert, obeys commands, Oriented to person, place, time, situation. Respiratory: Airway is patent Respiratory effort is even, unlabored, Respiratory pattern is regular, symmetrical. 09:21 Reassessment: Patient appears in no apparent distress at this time. Patient and/or db family updated on plan of care and expected duration. Pain level reassessed. Patient is alert, oriented x 3, equal unlabored respirations, skin warm/dry/pink. dc pending fluids Patient states feeling better. Patient states symptoms have improved. 10:01 Reassessment: Patient appears in no apparent distress at this time. Patient and/or db family updated on plan of care and expected duration. Pain level reassessed. Patient is alert, oriented x 3, equal unlabored respirations, skin warm/dry/pink. Vital Signs: 07:11 BP 135 / 84; Pulse 131; Resp 18; Temp 98.4(O); Pulse Ox 99% on R/A; Weight 90.72 kg; oe Height 5 ft. 7 in. ; Pain 10/10; 07:38 BP 136 / 88; Pulse 131; Resp 20; Pulse Ox 99% on R/A; db 08:19 BP 138 / 87; Pulse 108; Resp 18; Pulse Ox 98% on R/A; db 09:00 BP 139 / 92; Pulse 109; Resp 18; Pulse Ox 100% on R/A; db 09:45 BP 145 / 93; Pulse 102; Resp 16; Temp 98.2; Pulse Ox 98% ; db 07:11 Body Mass Index 31.32 (90.72 kg, 170.18 cm) oe 07:11 Pain Scale: Adult oe Vitals: 09:45 Cardiac Rhythm Assessment Regular Sinus rhythm. db ED Course: 07:04 Patient arrived in ED. eb 07:08 Yossi Burt DO is Attending Physician. ms3 07:11 EKG done, by validation technician. reviewed by Yossi Burt DO. oe 07:12 Arm band placed on Patient placed in an exam room. db 07:30 Patient has correct armband on for positive identification. Bed in low position. Call db light in reach. Side rails up X 1. Provided Education on: LABS AND RADIOLOGY. Client placed on continuous cardiac and pulse oximetry monitoring. NIBP monitoring applied. teletypesetter monitor on. Pulse ox on. NIBP on. Warm blanket given. 07:34 Renita Cummins, RN is Primary Nurse. db 07:40 Inserted saline lock: 20 gauge in right antecubital area, using aseptic technique. db Blood collected. 07:40 Initial lab(s) drawn, by me, sent to lab. db 07:50 Triage completed. db 08:11 XRAY Chest (1 view) In Process Unspecified. EDMS 08:21 CT Chest For PE Angio In Process Unspecified. EDMS 08:25 Patient moved back from CT. db 08:42 No provider procedures requiring assistance completed. db 09:03 Shaheen Machado DO is Referral Physician. ms3 10:01 IV discontinued, intact, bleeding controlled, No redness/swelling at site. db Administered Medications: 07:45 Drug: Aspirin PO Chewable Tablet 324 mg PO once; 81 mg tablets x 4 Route: PO; db 09:55 Follow up: Response: No adverse reaction db 08:27 Drug: NS 0.9% IV 1000 ml IV at 1000 ml once Route: IV; Rate: 1000 ml; Site: right db antecubital; 09:55 Follow up: Response: No adverse reaction; IV Status: Completed infusion; IV Intake: db 1000ml Medication: 07:30 VIS not applicable for this client. db Intake: 09:55 IV: 1000ml; Total: 1000ml. db Outcome: 09:03 Discharge ordered by . ms3 10:01 Discharged to home ambulatory, db 10:01 Condition: stable 10:01 Discharge instructions given to patient, Instructed on discharge instructions, follow up and referral plans. 10:02 Patient left the ED. db Signatures: Dispatcher [employer] EDAR Anthony Chandler Elizabeth eb Sims, Marcus, DO DO ms3 Renita Cummins, RN RN db Corrections: (The following items were deleted from the chart) 08:43 07:45 Inserted saline lock: 20 gauge in right antecubital area, using aseptic db technique. Blood collected. db
--- NOTE | 2023-11-13 09:04 | EDPHYS ---
Physician Documentation [facility] Name: Yossi Royal Age: 28 yrs Sex: Male : 1995 Arrival Date: 11/13/2023 Time: 06:58 Bed 5 Private MD: ED Physician Yossi Burt HPI: 11/12 07:47 This 28 yrs old Male presents to ER via Unassigned with complaints of Chest ms3 pain. 07:47 28-year-old male with no past medical history presents to the emergency department for ms3 chest pain that has been ongoing for 2 hours located in his left chest. Patient denies radiation of the pain. Patient endorses headache and shortness of breath. Patient denies nausea, vomiting, fevers, chills.. Historical: - Allergies: 07:50 No Known Allergies; db - PMHx: 07:50 ADD/ADHD; Bipolar disorder; Depression; db - Immunization history:: Adult Immunizations unknown. - Social history:: Smoking status: Patient denies any tobacco usage or history of. Patient uses alcohol. ROS: 07:47 Constitutional: Negative for fever, and chills. Cardiovascular: Negative for chest ms3 pain, and palpitations. Abdomen/GI: Negative for abdominal pain, nausea, vomiting, diarrhea, and constipation, 07:47 MS/Extremity: Negative for injury and deformity, 07:47 Respiratory: Positive for cough, 07:47 All other systems are negative, Exam: 06:55 ECG was reviewed by the Attending Physician. ms3 07:47 Constitutional: This is a well developed, well nourished patient who is awake, alert, ms3 and in no acute distress. Head/Face: Normocephalic, atraumatic. Neck: Trachea midline, no cervical lymphadenopathy. Supple, full range of motion without nuchal rigidity, or vertebral point tenderness. No Meningismus. Chest/axilla: Normal chest wall appearance and motion. Nontender with no deformity. Respiratory: Lungs have equal breath sounds bilaterally, clear to auscultation and percussion. No rales, rhonchi or wheezes noted. No increased work of breathing, no retractions or nasal flaring. 07:47 Cardiovascular: Rate: bradycardic, Rhythm: regular, Pulses: no pulse deficits are appreciated, Heart sounds: normal, normal S1and S2, Vital Signs: 07:11 BP 135 / 84; Pulse 131; Resp 18; Temp 98.4(O); Pulse Ox 99% on R/A; Weight 90.72 kg; oe Height 5 ft. 7 in. ; Pain 10/10; 07:38 BP 136 / 88; Pulse 131; Resp 20; Pulse Ox 99% on R/A; db 08:19 BP 138 / 87; Pulse 108; Resp 18; Pulse Ox 98% on R/A; db 09:00 BP 139 / 92; Pulse 109; Resp 18; Pulse Ox 100% on R/A; db 09:45 BP 145 / 93; Pulse 102; Resp 16; Temp 98.2; Pulse Ox 98% ; db 07:11 Body Mass Index 31.32 (90.72 kg, 170.18 cm) oe 07:11 Pain Scale: Adult oe MDM: 07:19 Patient medically screened. ms3 07:47 Differential diagnosis: abnormal EKG, acute myocardial infarction, anxiety, coronary ms3 artery disease chest wall pain, pulmonary embolus. 09:03 HEART Score: History: Slightly Suspicious (0), ECG: Normal (0), Age: < or = 45 years ms3 (0), Risk Factors: No Risk Factors Known (0), Troponin: < or = 1 x Normal Limit (0), Total Score = 0. Data reviewed: vital signs, nurses notes, and as a result, I will discharge patient. I considered the following discharge prescriptions or medication management in the emergency department Medications were administered in the Emergency Department. See MAR. Independent interpretation of the following test(s) in the Emergency Department EKG: See my EKG interpretation above. Counseling: I had a detailed discussion with the patient and/or guardian regarding the historical points, exam findings, and any diagnostic results supporting the discharge/admit diagnosis, lab results, radiology results, the need for outpatient follow up, to return to the emergency department if symptoms worsen or persist or if there are any questions or concerns that arise at home. Special discussion: Based on the patient's history, exam, and Dx evaluation, there is no indication for emergent intervention or inpatient Tx. It is understood by the patient/guardian that if the Sx's persist or worsen they need to return immediately for re-evaluation. ED course: Discussed labs, CT, EKG with patient. Patient to follow-up with primary care physician in 2 to 3 days. Patient understands and agrees with plan. All questions were answered. Return precautions discussed include worsening symptoms, or any other concerns. On reevaluation patient is alert and oriented x 4, no apparent distress, nontoxic-appearing, ambulatory emergency primary, speaking full sentences. 11/12 07:16 Order name: Basic Metabolic Panel; Complete Time: 08:33 ms3 11/12 07:16 Order name: CBC with Diff; Complete Time: 08:33 ms3 11/12 07:16 Order name: LFT's; Complete Time: 08:33 ms3 11/12 07:16 Order name: Magnesium; Complete Time: 08:33 ms3 11/12 07:16 Order name: Troponin HS; Complete Time: 08:33 ms3 11/12 07:16 Order name: XRAY Chest (1 view); Complete Time: 08:33 ms3 11/12 07:18 Order name: CT Chest For PE Angio; Complete Time: 08:55 ms3 11/12 07:16 Order name: Cardiac monitoring; Complete Time: 07:49 ms3 11/12 07:16 Order name: EKG - Nurse/Tech; Complete Time: 07:34 ms3 11/12 07:16 Order name: IV Saline Lock; Complete Time: 07:49 ms3 11/12 07:16 Order name: Labs collected and sent; Complete Time: 07:49 ms3 11/12 07:16 Order name: O2 Per Protocol; Complete Time: 07:49 ms3 11/12 07:16 Order name: O2 Sat Monitoring; Complete Time: 07:49 ms3 EC:55 Rate is 131 beats/min. Rhythm is regular. QRS [place] is Normal. CA interval is normal. ms3 QRS interval is normal. Clinical impression: Sinus tachycardia. Interpreted by me. Reviewed by me. Administered Medications: 07:45 Drug: Aspirin PO Chewable Tablet 324 mg PO once; 81 mg tablets x 4 Route: PO; db 09:55 Follow up: Response: No adverse reaction db 08:27 Drug: NS 0.9% IV 1000 ml IV at 1000 ml once Route: IV; Rate: 1000 ml; Site: right db antecubital; 09:55 Follow up: Response: No adverse reaction; IV Status: Completed infusion; IV Intake: db 1000ml Disposition Summary: 03/30/24 09:03 Discharge Ordered Notes: Location: Home ms3 Condition: Stable ms3 Diagnosis - Chest pain, unspecified ms3 - Shortness of breath ms3 Followup: ms3 - With: Shaheen Machado DO - When: 2 - 3 days - Reason: Recheck today's complaints Discharge Instructions: - Discharge Summary Sheet ms3 - Nonspecific Chest Pain, Adult ms3 Forms: - Medication Reconciliation Form ms3 - Thank You Letter ms3 - Antibiotic Education ms3 - Prescription Opioid Use ms3 - Patient Portal Instructions ms3 - Leadership Thank You Letter ms3 Signatures: Dispatcher [employer] EDMS Yossi Burt DO DO ms3 Renita Cummins, RN RN db Corrections: (The following items were deleted from the chart) 07:17 07:17 BASIC METABOLIC PANEL+C.LAB.BRZ ordered. EDMS EDMS 07:17 07:17 CBC+H.LAB.BRZ ordered. EDMS EDMS 07:17 07:17 HEPATIC FUNCTION+C.LAB.BRZ ordered. EDMS EDMS 07:17 07:17 MAGNESIUM+C.LAB.BRZ ordered. EDMS EDMS 07:17 07:17 Troponin High Sensitivity+C.LAB.BRZ ordered. EDMS EDMS 07:17 07:17 Chest Single View+RAD.RAD.BRZ ordered. EDMS EDMS
[2023-11-13 10:32] VITALS: BP 145/93; TEMP 98.2; O2SAT 98
--- NOTE | 2023-11-15 13:45 | EKG ---
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
== END 2023-11-13 10:02 | disposition home or self-care (01) ==
LOC: ER 06:58
DX: R07.9 Chest pain, unspecified (principal); R06.02 Shortness of breath; R05.9 Cough, unspecified
CPT/HCPCS: 36415; 71045; 71275; 80048; 80076; 83735; 84484; 85025; 93005; 96360; 99285; J7030; Q9967

== ENCOUNTER 2024-11-24 06:13 | Emergency (ER) | payer SELFPAY ==
--- OUTSIDE RECORDS SUMMARY | 2024-11-24 06:15 | XMS REPORT | Continuity of Care Document ---
Author Name Unknown Address [address] [facility] [address] [place] [address] Organization [facility] Address [address] [facility] [address] [place] [address] Care Team Providers Care Underwriter Name Role Phone Pcp, Patient Does Not Have A Primary Care Physic aparna [facility], [place] Ped Attending Clinician U Jun Gutiérrez MD Attending Clinician JUN RODRIGUEZ Attending Clinician Unavailable Problems Condition Name Condition Details Condition Category Status Onset Date Resolution Date Last Treatment Date Treating Clinician Comments Source Mandible fracture Mandible fracture Disease Active 04-01 00:00: 00 [facility] Closed fracture of mandible, unspecifie d laterality , unspecifie d mandibular site, initial encounter Closed fracture of mandible, unspecifie d laterality , unspecifie d mandibular site, initial encounter Disease Active 04-01 00:00: 00 Overview: Formattin g of this note might be different from the original. Added automatic ally from request for surgery [id number] [facility] Allergies, Adverse Reactions, Alerts Allergy Name Allergy Type Status Severity Reaction(s) Onset Date Inactive Date Treating Clinician Comments Source NO KNOWN ALLERGIE S Drug Class Active [facility] Social History Social Habit Start Date Stop Date Quantity Comments Source Tobacco use and exposure 2018-05-10 00:00:00 2018-05-10 00:00:00 Never used [facility] Cigarettes smoked current (pack per day) - Reported 2018-05-10 00:00:00 2018-05-10 00:00:00 [facility] Cigarette pack-years 2018-05-10 00:00:00 2018-05-10 00:00:00 [facility] History of tobacco use 2017-05-10 00:00:00 Cigarette Smoker [facility] Sex Assigned At 1995 00:00:00 1995 00:00:00 [facility] Smoking Status Start Date Stop Date Source Former smoker 2018-05-10 00:00:00 2018-05-10 00:00:00 [facility] Medications Ordered Medication Name Filled Medication Name Start Date Stop Date Current Medication? Ordering Clinician Indication Dosage Frequency Signature (SIG) Comments Components Source TAKE 1 TABLET DAILY. 03-26 00:00: 00 No 25 Dose Unknown 5 00:00: 00 No Dose Unknown 12-09 00:00: 00 No Dose Unknown 12-09 00:00: 00 No Dose Unknown 3- 00:00: 00 No Dose Unknown 3 00:00: 00 No Claritin 10 mg tablet 2-14 00:00: 00 No 1mg fluticasone propionate 50 mcg/actuati on nasal spray,suspe nsion 2-14 00:00: 00 No 2mcg/ac tuation Dose Unknown 2-14 00:00: 00 No No known medications 04-05 13:53: 30 No [facility] Vital Signs Vital Name Observation Time Observation Value Comments S ource BP Systolic 2022-03-26 17:17:00 151 mm[Hg] BP Diastolic 2022-03-26 17:17:00 90 mm[Hg] Weight Measured 2022-03-26 17:17:00 186.40 pounds Height Measured 2022-03-26 17:17:00 67.00 inches Body Temperature 2022-03-26 17:17:00 98.50 degrees Heart Rate 2022-03-26 17:17:00 73.00 /min Respiratory Rate 2022-03-26 17:17:00 BP Systolic 2021-12-09 16:47:00 108 mm[Hg] BP Diastolic 2021-12-09 16:47:00 66 mm[Hg] Weight Measured 2021-12-09 16:47:00 186.60 pounds Height Measured 2021-12-09 16:47:00 67.00 inches Body Temperature 2021-12-09 16:47:00 97.90 degrees Heart Rate 2021-12-09 16:47:00 96.00 /min Respiratory Rate 2021-12-09 16:47:00 21.00 /min Procedures Procedure Date / Time Performed Performing Clinicia n Source SARS-COV-2 COVID-19 VACCINE,0.3ML,IM (PFIZER) 2021-09-08 21:32:43 Doctor Unassigned, [place] [facility] Plan of Care Planned Activity Planned Date Details Comments Source Goal Plan of Care Note [code = 28721-0] Goal Plan of Care Note [code = 83082-7] Goal Plan of Care Note [code = 00853-5] Goal Plan of Care Note [code = 33083-0] Goal Plan of Care Note [code = 47999-0] Goal Plan of Care Note [code = 02844-7] Goal Plan of Care Note [code = 42365-4] Goal Plan of Care Note [code = 68546-2] Goal Plan of Care Note [code = 59171-5] Goal Plan of Care Note [code = 87071-9] Goal Plan of Care Note [code = 97129-2] Goal Plan of Care Note [code = 04471-3] Encounters Start Date/Time End Date/Time Encounter Type Admission Type Attending [facility] Care Department Encounter ID Source 2022-09-21 17:31:11 2022-09-21 17:31:11 Outpatient [facility] [id number] Aakash Wilde Roney 2022-09-17 11:02:40 2022-09-17 11:02:40 Outpatient [facility] [id number] Aakash Wilde Roney 2022-09-14 15:26:21 2022-09-14 15:26:21 Outpatient [facility] [id number] Aakash Wiled Roney 2022-03-26 00:00:00 2022-03-26 00:00:00 Outpatient Visit [id number] 2021-09-08 14:50:00 2021-09-08 15:00:00 Imm/Inj Visit Vaccine, [place] PedJun [facility] [id number] [facility] 2021-09-08 14:50:00 2021-09-08 14:50:00 Outpatient R JUN RODRIGUEZ [facility] [id number] [facility] Results Test Description Test Time Test Comments Results Result Co mments Source CULTURE, URINE 2022-09-19 11:03:58 SPECIMEN NUMBER: [id number] CULTURE, URINE SPECIMEN NUMBER: [id number] SPECIMEN COMMENT: URINE SOURCE: URINE REPORT STATUS: FINAL FINAL REPORT: 09/19/2022 NO GROWTH AFTER 36 HOURS INCUBATION [facility] has important pathology staff changes effective 10/14/2022. New pathology staff will provide uninterrupted, excellent patient care and clinical consultation. See URL: [email or web address]. UNLESS OTHERWISE INDICATED, ALL TESTING PERFORMED AT [facility] [address] [place] [address] CLIA: [id number], CAP: [id number] HIV 1/2 4TH GEN, RFLX [id number] 04:28:10* Test Item Value Reference Range Interpretation Comme nts HIV 1/2 4TH GEN, RFLX CONF ( test code = 3514) NON-REACTIVE NON-REACTIVE [id number] 04:26:07* Test Item Value Reference Range Interpretation Comme nts RPR RESULT (test code = 3501) NON-REACTIVE NON-REACTIVE RPR TITER (test code = 3500) NOT INDIC. TITER NOT INDIC. TSH, THIRD [id number] 04:27:09* Test Item Value Reference Range Interpretation Comme nts TSH, THIRD GENERATION (test code = 2821) 2.170 UIU/ML 0.400-4.100 LIPID [id number] 03:37:00* Test Item Value Reference Range Interpretation Comme nts CHOLESTEROL (test code = 2210) 182 MG/DL <200 TRIGLYCERIDES (test code = 2232) 52 MG/DL <150 HDL CHOLESTEROL (test code = 2220) 71 MG/DL >39 CALC LDL CHOL (test code = 223) 98 MG/DL <100 NOTE: CALCULATED LDL IS BASED ON KERRI-BRIGGS METHOD WHICHINCLUDES ADJUSTABLE TRIGLYCERIDE:VLDL CHOLESTEROL RATIO.THIS FACTOR VARIES BY MEASURED TRIGLYCERIDE AND NON-HDLCHOLESTEROL CONCENTRATIONS WITH INCREASED CALCULATED LDL SEENIN HIGHER TRIGLYCERIDE OR LOWER NON-HDL SPECIMENS. FOR MOREINFORMATION, SEE CLIENT ANNOUNCEMENT AT [email or web address] [email or web address] RATIO LDL/HDL (test code = 2237) 1.38 RATIO <3.55 UNLESS OTHERW ISE INDICATED, ALL TESTING PERFORMED [facility] [address] [place] [id number] [employer] MILLER: SAVANAH MCDONALD M.D. CLIA NUMBER [id number] [facility] [place]. [id number] COMPREHENSIVE METABOLIC [id number] 03:37:00* Test Item Value Reference Range Interpretation Comme nts GLUCOSE (test code = 2216) 88 MG/DL 70-99 BUN (test code = 2207) 18 MG/DL 6-20 CREATININE (test code = 2214) 1.00 MG/DL 0.80-1.40 eGFR (2020 CKD-EPI) (test code = 01488) 106 ML/MIN/1.73 >60 CALC BUN/CREAT (test code = 2235) 18 RATIO 6-28 SODIUM (test code = 223) 138 MEQ/L 133-146 POTASSIUM (test code = 2228) 4.4 MEQ/L 3.5-5.4 CHLORIDE (test code = 2215) 101 MEQ/L 95-107 CARBON DIOXIDE (test code = 2206) 26 MEQ/L 19-31 CALCIUM (test code = 2209) 9.8 MG/DL 8.5-10.5 PROTEIN, TOTAL (test code = 222) 7.6 G/DL 6.1-8.3 ALBUMIN (test code = 2200) 4.9 G/DL 3.5-5.2 CALC GLOBULIN (test code = 2240) 2.7 G/DL 1.9-3.7 CALC A/G RATIO (test code = 223) 1.8 RATIO 1.0-2.6 BILIRUBIN, TOTAL (test code = 2206) 0.4 MG/DL See_Comment [Automated me ssage] The system which generated this result transmitted reference range: <=1.2. The reference range was not used to interpret this result as normal/abnormal. ALKALINE PHOSPHATASE (test code = 2204) 78 U/L 40-115 AST (test code = 2218) 22 U/L 9-50 ALT (test code = 2219) 34 U/L 5-50 CBC W/AUTO DIFF WITH [id number] 03:04:03* Test Item Value Reference Range Interpretation [...] 0.00-0.10 ABS NUCLEATED RBCS (test code = 39830) 0.00 K/UL 0.00-0.11 CULTURE, [id number] 13:46:27SPECIMEN NUMBER: [id number] CULTURE, URINE SPECIMEN NUMBER: [id number] SPECIMEN COMMENT: URINE SOURCE: URINE REPORT STATUS: FINAL FINAL REPORT: 12/12/2021 <10,000 CFU/ML UROGENITAL SUZAN PRESENT NO COMMON PATHOGENSCULTURE, [id number] 00:00:00* Test Item Value Reference Range Interpretation Comme nts CULTURE, URINE (test code = 14685) SPECIMEN NUMBER: [id number] CT/NG, NAAT, [id number] 19:42:47* Test Item Value Reference Range Interpretation Comme nts GONORRHEA, NAAT (test code = 49853) NEGATIVE NEGATIVE IMPORTANT NO CHEIKH: SEE ANNOUNCEMENT AT [email or web address] Note: Assay methodology is nucleic acid amplification by client services associate mediated amplification (TMA) utilizing the Aptima Combo 2 Assay. CHLAMYDIA, NAAT (test code = 33762) NEGATIVE NEGATIVE IMPORTANT NO CHEIKH: SEE ANNOUNCEMENT AT [email or web address] Note: Assay methodology is nucleic acid amplification by client services associate mediated amplification (TMA) utilizing the Aptima Combo 2 Assay. [id number] 04:26:58* Test Item Value Reference Range Interpretation Comme nts RPR RESULT (test code = 3501) NON-REACTIVE NON-REACTIVE RPR TITER (test code = 3500) NOT INDIC. TITER NOT INDIC. UNLESS OTHERWISE INDICATED, ALL TESTING PERFORMED [facility] [address] [place] [id number] WOOD MILLER: SAVANAH MCDONALD M.D. CLIA NUMBER [id number] [place]. [id number] HIV 1/2 4TH GEN, RFLX [id number] 03:50:31* Test Item Value Reference Range Interpretation Comme nts HIV 1/2 4TH GEN, RFLX CONF ( test code = 3514) NON-REACTIVE NON-REACTIVE HEPATITIS PANEL, [id number] 03:50:31* Test Item Value Reference Range Interpretation Comme [facility] HEPATITIS A IgM (test code = 60770) NON-REACTIVE NON-REACTIVE HEPATITIS B CORE IgM (test code = 4644) NON-REACTIVE NON-REACTIVE HEPATITIS B SURF AG (test code = 2739) NON-REACTIVE NON-REACTIVE HEPATITIS C ANTIBODY (test code = 4675) NON-REACTIVE NON-REACTIVE INTERPRETATION HEPATITIS A: (test code = 2552) (NOTE) Hepatitis A serology shows no evidence of acute hepatitis A. INTERPRETATION HEPATITIS B: (test code = 07114) (NOTE) Hepatitis B serology shows no evidence of acute hepatitis B andno indication of exposure to hepatitis B virus in the previous aida eight months. INTERPRETATION HEPATITIS C: (test code = 08576) (NOTE) Hepatitis C serology shows no evidence of exposure to hepatitisC virus at this time. It can take up to 12 months after exposure tothe hepatitis C virus for antibodies to become detectable in the blood in certain patients. HIV AB/AG COMBO RFLX [id number] 00:00:00* Test Item Value Reference Range Interpretation Comme [facility] HIV 1/2 4TH GEN, RFLX CONF ( test code = 3514) NON-REACTIVE ACUTE HEPATITIS [id number] 00:00:00* Test Item Value Reference Range Interpretation Comme nts HEPATITIS A IgM (test code = 08033) NON-REACTIVE HEPATITIS B CORE IgM (test c ode = 4644) NON-REACTIVE HEPATITIS B SURF AG (test co de = 2739) NON-REACTIVE HEPATITIS C ANTIBODY (test c ode = 4675) NON-REACTIVE INTERPRETATION HEPATITIS A: (test code = 2552) (NOTE) INTERPRETATION HEPATITIS B: (test code = 71159) (NOTE) INTERPRETATION HEPATITIS C: (test code = 18618) (NOTE) GC AND CHLAMYDIA, AMPLIFIED, [id number] 00:00:00* Test Item Value Reference Range Interpretation Comme nts GONORRHEA, NAAT (test code = 31946) NEGATIVE CHLAMYDIA, NAAT (test code = 36057) NEGATIVE [id number] 00:00:00* Test Item Value Reference Range Interpretation Comme nts RPR RESULT (test code = 3501) NON-REACTIVE RPR TITER (test code = 3500) NOT INDIC. TITER
[2024-11-24] MEDS ORDERED: KETOROLAC 30 MG/ML INJ ONE (06:43)
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
[2024-11-24 08:50] VITALS: TEMP 97.6
[2024-11-24 08:52] VITALS: BP 122/86; O2SAT 95
== END 2024-11-24 08:36 | disposition home or self-care (01) ==
LOC: ER 06:13
DX: M54.2 Cervicalgia (principal); R51.9 Headache, unspecified; M25.512 Pain in left shoulder; M25.511 Pain in right shoulder; S09.90XA Unspecified injury of head, initial encounter
CPT/HCPCS: 70450; 71045; 72125; 96372; 99284